=== PATIENT | female | born 1960 | race Caucasian/White ===

== ENCOUNTER → 2020-04-02 09:52 | Outpatient (CLI) | payer BC, SELFPAY ==
--- NOTE | 2020-04-02 | DI.CT.S_ITS ---
PROCEDURE: CT LUMBAR SPINE WO CON INDICATIONS: Dorsalgia, unspecified TECHNIQUE: Noncontrast 3 mm thick sections acquired from the T12 level to the sacrum. Sagittal and coronal reformats were constructed. For radiation dose reduction, the following was used: automated exposure control. COMPARISON: [facility], CR, L-SPINE 2-3 VIEWS, 10/29/2014, 4:26. [facility], MR, L-SPINE WITHOUT CONTRAST, 07/06/2015, 10:27. [facility], , SPINE LUMB 2 OR 3VW, 02/19/2014, 10:22. [facility], MR, L-SPINE WITHOUT CONTRAST, 12/02/2013, 9:24. [facility], , SPINE LUMB 2 OR 3VW, 03/23/2020, 10:33. FINDINGS: Image quality: Excellent. Bones: There is trace anterolisthesis at L4-L5, and trace retrolisthesis at L1-L2 and L2-L3. No acute vertebral body compression fractures. No suspicious lytic or blastic bony lesions. Central spinal caliber is of normal overall caliber. No pars defects. T12-L1: Mild loss of disc height and endplate irregularity. There is diffuse posterior disc bulge. Mild bilateral facet arthropathy. The central canal is patent. No foraminal stenosis. L1-L2: Moderate loss of disc height and vacuum phenomena. There is diffuse posterior disc bulge and disc osteophyte complex. Mild bilateral facet arthropathy. The central canal is mildly narrowed. No foraminal stenosis. L2-L3: Moderate loss of disc height. There is diffuse posterior disc bulge. Moderate bilateral facet arthropathy. The central canal is mildly narrowed. Mild bilateral foraminal stenosis. L3-L4: Moderate loss of disc height. There is diffuse posterior disc bulge. Moderate bilateral facet arthropathy. 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 The central canal is mildly narrowed. Mild bilateral foraminal stenosis. L4-L5: Discectomy, left hemilaminectomy and posterior fusion. There is a disc prosthesis. No central canal stenosis. Moderate left and mild right foraminal stenosis. L5-S1: Preserved disc height. Posterior disc bulge and posterior disc osteophyte complex. No central canal stenosis. Moderate left and mild right foraminal stenosis. Soft tissues: No retroperitoneal masses or hematomas. Visualized aorta is normal in caliber. There are multiple gallstones. Scattered colonic diverticula are present. IMPRESSION: 1. Multilevel degenerative and postsurgical changes in lumbar spine as described. 2. Mild central canal stenosis at multiple levels as described. 3. Mild foraminal stenosis at multiple levels as described. 4. Discectomy, left hemilaminectomy and posterior fusion at L4-L5 with a disc prosthesis. No central canal or foraminal stenosis. 5. Cholelithiasis. 6. Diverticulosis. Dictated by: Fazal Ackerman M.D. on 04/02/2020 at 10:45 Approved by: Fazal Ackerman M.D. on 04/02/2020 at 11:18
== END ==
PROVIDERS: Family Provider Family Medicine Geriatric Medicine; PCP Physician Assistant Medical; Referring Provider Orthopaedic Surgery Orthopaedic Surgery of the Spine; Visit Provider Orthopaedic Surgery Orthopaedic Surgery of the Spine
DX: M54.9 Dorsalgia, unspecified (principal); M47.816 Spondylosis without myelopathy or radiculopathy, lumbar region; M47.817 Spondylosis without myelopathy or radiculopathy, lumbosacral region; M48.061 Spinal stenosis, lumbar region without neurogenic claudication; M48.07 Spinal stenosis, lumbosacral region; K80.20 Calculus of gallbladder without cholecystitis without obstruction; K57.90 Diverticulosis of intestine, part unspecified, without perforation or abscess without bleeding; Z98.1 Arthrodesis status
CPT/HCPCS: 72131

== ENCOUNTER → 2021-09-20 09:04 | Outpatient (CLI) | payer BC, SELFPAY ==
--- NOTE | 2021-09-20 | DI.MRI.S_ITS ---
PROCEDURE: MR LUMBAR SPINE WO CON INDICATIONS: LUMBAR SPINE PAIN TECHNIQUE: Noncontrast sagittal T1 spin echo and T2 fast echo, sagittal STIR, and T2 fast spin echo through the lumbar spine. In cases with scoliosis, additional coronal T2 fast spin echo may be performed. COMPARISON: [facility], , L-SPINE WITHOUT CONTRAST, 07/06/2015, 10:27. FINDINGS: Image quality: Excellent. Alignment and Curvature: There is normal bony alignment. Bone Marrow: Discectomy and fusion at L4-5 noted with posterior vicky and screw instrumentation similar prior. Spinal Cord: Conus medullaris terminates at the L1 level. Visualized cord demonstrates normal signal and size. Paraspinous Soft Tissues: No paravertebral masses. T12-L1: Disc space narrowing with posterior disc bulge results in mild central stenosis. No foraminal stenosis L1-L2: Disc space narrowing with circumferential disc bulge and hypertrophic facet joints results in mild central and bilateral foraminal stenosis L2-L3: Disc space narrowing with circumferential disc bulge and hypertrophic facet joints results in moderate central and mild bilateral foraminal stenosis L3-L4: Disc space narrowing with circumferential disc bulge and hypertrophic facet joints results in mild central stenosis. Moderate bilateral foraminal stenosis. Discectomy and fusion L4-L5: Discectomy and fusion present. No central stenosis. Moderate left and no right foraminal stenosis L5-S1: Disc space narrowing with broad-based disc bulge. No central stenosis. Moderate right and severe left foraminal stenosis present. IMPRESSION: Multilevel degenerative disc disease and arthropathy results in varying degrees of central and foraminal stenosis including moderate central stenosis at L2-3 and severe left foraminal stenosis L5-S1 L4-5 discectomy and fusion with vicky and screw instrumentation, stable Dictated by: Saud Pisano M.D. on 09/20/2021 at 15:59 Approved by: Saud Pisano M.D. on 09/20/2021 at 16:04
== END ==
PROVIDERS: Family Provider Family Medicine Geriatric Medicine; PCP Physician Assistant Medical; Referring Provider Orthopaedic Surgery Orthopaedic Surgery of the Spine; Visit Provider Orthopaedic Surgery Orthopaedic Surgery of the Spine
DX: M51.36 Other intervertebral disc degeneration, lumbar region (principal); M51.37 Other intervertebral disc degeneration, lumbosacral region; M47.816 Spondylosis without myelopathy or radiculopathy, lumbar region; M48.061 Spinal stenosis, lumbar region without neurogenic claudication; M48.07 Spinal stenosis, lumbosacral region; M54.50 Low back pain, unspecified; Z98.1 Arthrodesis status
CPT/HCPCS: 72148